=== PATIENT | female | born 1995 | race Caucasian/White ===

== ENCOUNTER → 2020-04-08 11:30 | Outpatient (POV) | payer BC, SELFPAY | PROVIDERS: Visit Provider Audiologist | DX: Z00.00 Encounter for general adult medical examination without abnormal findings (principal) ==

== ENCOUNTER → 2021-02-24 08:39 | Outpatient (POV) | payer BC, SELFPAY | PROVIDERS: Visit Provider Audiologist | DX: Z00.00 Encounter for general adult medical examination without abnormal findings (principal) ==

== ENCOUNTER → 2021-03-26 11:07 | Outpatient (CLI) | payer BC, SELFPAY | PROVIDERS: PCP Family Medicine; Visit Provider Family Medicine | DX: Z20.822 Contact with and (suspected) exposure to COVID-19 (principal) | CPT/HCPCS: U0003 ==

== ENCOUNTER → 2021-06-09 15:18 | Outpatient (CLI) | payer BC, SELFPAY ==
--- NOTE | 2021-06-09 15:22 | US_ITS ---
PROCEDURE: US TRANSVAGINAL CLINICAL INDICATION: POLYCYSTIC OVARY SYNDROME COMPARISON: No exams were available for comparison FINDINGS: UTERUS: 7cm x 5cmx 3cm with a combined endometrial thickness of 2.6mm. No uterine mass evident. LEFT OVARY: [id number] with a volume of 7.1ml. RIGHT OVARY: [id number] with a volume of 9.3ml. No cul-de-sac fluid evident. There are few small follicles in the left ovary. IMPRESSION: Unremarkable pelvic ultrasound Dictated by: Yadiel Fernandes MD 06/09/2021 16:42 Yadiel Fernandes MD in [place] 06/09/2021 16:42
== END ==
PROVIDERS: PCP Family Medicine; Visit Provider Family Medicine
DX: E28.2 Polycystic ovarian syndrome (principal)
CPT/HCPCS: 76830

== ENCOUNTER → 2021-08-18 09:20 | Outpatient (CLI) | payer BC, SELFPAY ==
[2021-08-18 11:22] LABS: Thyroid Stimulating Hormone 7.11 uIU/mL (0.465-4.68)
== END ==
PROVIDERS: Visit Provider Family Medicine
DX: R94.6 Abnormal results of thyroid function studies (principal)
CPT/HCPCS: 36415; 84443

== ENCOUNTER → 2021-12-24 08:42 | Outpatient (CLI) | payer BC, SELFPAY ==
[2021-12-24 09:57] LABS: Blood Urea Nitrogen 12 mg/dl (7-17); Calcium 9.2 mg/dl (8.4-10.2); Carbon Dioxide 23 mmol/L (22.0-30.0); Chloride 105 mmol/L (98-107); Estimated Glomerular Filt Rate 102 ml/min (>60); GFR (African American) 123 ML/MIN (>60); Glucose 102 mg/dl (74-100); Sodium 139 mmol/L (136-145)
== END ==
PROVIDERS: Visit Provider Surgery
DX: Z01.812 Encounter for preprocedural laboratory examination (principal); Z11.52 Encounter for screening for COVID-19; L73.2 Hidradenitis suppurativa
CPT/HCPCS: 36415; 80048; C9803; U0003; U0005

== ENCOUNTER 2021-12-26 10:17 | Day surgery (SDC) | payer BC, SELFPAY ==
[2021-12-23 12:03] VITALS: BMI 39.6
[2021-12-26] VITALS (11 sets, daily range): BP systolic 120–160; BP diastolic 61–96; PULSE 84–107; RESP 12–18; TEMP 36.1–37.1; O2SAT 92–97
[2021-12-26 11:45] LABS: HCG Qualitative, Serum Negative (Negative)
--- NOTE | 2021-12-26 12:19 | P.PN_ITS ---
[facility] Anesthesia Checklist - Patient Identification Patient Identification: Arm Band - Structural Data Admitted From: Home Planned Operative Procedure/s: I&D Left Axillary Hidratinitis Consent for Planned Operative Procedure(s) Verified: Yes Verified Documents: Surgical Consent, History and Physical - NPO Status Verified Time NPO: 00:00 - Additional verifications Anesthesia Reactions: No Hx Blood Transfusions: No Blood Transfusion Reaction: No - Airway Assessment C-Spine Mobility Assessed: Yes (mp2) TMJ Mobility Assessed: Yes Dentition: Good Dentition - Neurological Assessment Level of Consciousness: Awake, Alert - Anesthesia Plan Anesthesia Risk discussed: Yes Anesthesia Plan: Verified ASA Class: III Anesthesia Type: General [facility] History I have reviewed the patient's past medical history: Yes Medical History: Reports:: Hyperlipidemia Denies:: Cancer, Diabetes Mellitus Type 1, Diabetes Mellitus Type 2, MRSA, Seizures *Have you ever received a pneumonia vaccine?: No *Have you received a flu vaccine this season?: No Other Medical History: Denies: Blood Transfusion Reaction Anesthesia experience/problems:: nac Laterality Cases: Bilateral: Myringotomy (Ear Tubes) Other Surgeries: Yes: Colonoscopy Amputation: No - *Social History Last grade of school completed: Advanced degree Smoking Status: Never smoker Alcohol Intake: never Substance Use Type: denies use *Occupational Status:: student Housing: house Household Members: family *Travel in the last 8 weeks: None Family Hx:: No significant family history
--- NOTE | 2021-12-26 14:01 | P.OP_ITS ---
Date of procedure: 12/26/21 Pre-op Diagnosis:: Left axillary hidradenitis suppurativa Post-op Diagnosis:: Same Procedure performed:: Incision and drainage with unroofing and debridement of left axillary hidradenitis suppurativa Surgeon:: Laz Amado MD [employer] ADJUSTER:: Other Anesthesia: LMA Estimated blood loss (mL): 25 Clinical Note:: Patient is a 26-year-old female referred by Dr. Guardado for left axillary abscess and seen in the office several days ago. She states that about 3 months ago she had developed 3 lumps in her left axillary region. It has been somewhat tender. About a week ago she had developed some drainage from a lower area that had become opened. Initially this was draining blood and then it became more purulent looking. She has been on clindamycin. No prior history of axillary hidradenitis. When seen in the office she had what appeared to be left axillary hidradenitis suppurativa. There is some purulent drainage from an open area in the skin which was somewhat ulcerated. It was felt that likely all of these areas of induration with erythema were communicating as classic axillary hidradenitis suppurativa. Plan was made for unroofing and debridement. Operative findings:: Consistent with underlying axillary hidradenitis suppurativa with purulent granulation tissue and tracts. Operative note:: Patient was taken the operating room. She was positioned in supine position. General anesthesia was induced via LMA. Left axilla was prepped and draped in the standard surgical fashion. At the site of the opening in the skin there was noted to be some underlying inflamed suppurative appearing tissue. Probe was inserted. This easily tracked to the other more superior indurated erythematous areas. The overlying skin was incised with electrocautery. There was underlying purulent granulation tissue consistent with hidradenitis suppurativa. This was thoroughly debrided mostly bluntly with abrasive gauze to clean epithelialized tissue. There was noted to be some purulent drainage with palpation more superior to this. There was noted to be a tract extending to this area from the main opening tract. Ultimately this required incision and unroofing with debridement of the underlying purulent granulation tissue as well. There was some minor deep tracking. Wound was irrigated. Local anesthetic was infiltrated. Decent hemostasis was achieved with electrocautery. Wound was packed with dry 4 x 4 and covered with clean dry sterile dressing. Condition: stable Disposition: PACU Complications:: None immediately apparent
--- NOTE | 2021-12-26 14:02 | HMH.ANESI ---
[facility] Anesthesia Record Part I Intake, IV Amount: 500 Estimated blood loss (mL): 20 Urine output (mL): 0 Blood Pressure: 132/87 SaO2: 92 Pulse Rate: 93 Respiratory Rate: 16 Temperature: 97.0 F Patient is:: Drowsy Stable to PACU at:: 13:58
--- NOTE | 2021-12-27 07:52 | P.PN_ITS ---
[facility] Anesthesia Record Part II Discharge Time: 14:38 Destination: Surgical Day Care (OP Surgery) PACU nurse assessment reviewed?: Yes Patient Condition:: Good Anesthesia Complications:: None Swallowing reflex intact?: Yes Cyanosis?: No Blood Pressure: 138/80 Pulse Rate: 96 Temperature: 97.1 F Mental Status: Alert & Oriented Pain level:: 0 Nausea and/or vomitting:: None Intake, IV Amount: 0
[2021-12-27 07:53] VITALS: BP 138/80; PULSE 96; TEMP 36.2
== END 2021-12-26 15:10 | disposition home or self-care (01) ==
LOC: OR 10:26
PROVIDERS: PCP Family Medicine; Visit Provider Surgery
PROC: (CPT 10061; principal; 2021-12-26 12:00)
DX: L73.2 Hidradenitis suppurativa (principal); E78.5 Hyperlipidemia, unspecified; E07.9 Disorder of thyroid, unspecified; Z79.3 Long term (current) use of hormonal contraceptives; Z79.899 Other long term (current) drug therapy
CPT/HCPCS: 10061; 84703; 96374; J2405

== ENCOUNTER 2021-12-27 12:31 | Outpatient (CLI) | payer BC, SELFPAY | END 2021-12-27 12:48 | disposition home or self-care (01) | LOC: INF 12:32 | PROVIDERS: PCP Family Medicine; Visit Provider Surgery | DX: Z48.01 Encounter for change or removal of surgical wound dressing (principal); L73.2 Hidradenitis suppurativa | CPT/HCPCS: G0463 ==

== ENCOUNTER 2021-12-28 15:17 | Outpatient (CLI) | payer BC, SELFPAY | END 2021-12-28 15:35 | disposition home or self-care (01) | LOC: INF 15:17 | PROVIDERS: PCP Family Medicine; Visit Provider Surgery | DX: L02.412 Cutaneous abscess of left axilla (principal); Z48.01 Encounter for change or removal of surgical wound dressing | CPT/HCPCS: G0463 ==

== ENCOUNTER 2021-12-29 15:23 | Outpatient (CLI) | payer BC, SELFPAY | END 2021-12-29 15:40 | disposition home or self-care (01) | LOC: INF 15:24 | PROVIDERS: PCP Family Medicine; Visit Provider Surgery | DX: L73.2 Hidradenitis suppurativa (principal); Z48.01 Encounter for change or removal of surgical wound dressing | CPT/HCPCS: G0463 ==

== ENCOUNTER 2021-12-30 15:17 | Outpatient (CLI) | payer BC, SELFPAY ==
--- NOTE | 2021-12-30 16:30 | PC.NURSE ---
REMOVED DRESSING FROM PT'S LEFT AXILLARY. IRRIGATED WOUND WITH NS, PACKED WITH DRY GAUZE, COVERED WITH ABD PAD, AND TAPED INTO PLACE.
== END 2021-12-30 15:40 | disposition home or self-care (01) ==
LOC: INF 15:18
PROVIDERS: PCP Family Medicine; Visit Provider Surgery
DX: L73.2 Hidradenitis suppurativa (principal); Z48.01 Encounter for change or removal of surgical wound dressing
CPT/HCPCS: G0463

== ENCOUNTER → 2021-12-31 15:28 | Outpatient (CLI) | payer BC, SELFPAY | PROVIDERS: PCP Family Medicine; Visit Provider Surgery | DX: L73.2 Hidradenitis suppurativa (principal); Z48.01 Encounter for change or removal of surgical wound dressing | CPT/HCPCS: G0463 ==

== ENCOUNTER → 2022-01-01 15:34 | Outpatient (CLI) | payer BC, SELFPAY ==
[2022-01-01 15:45] VITALS: BP 114/73; PULSE 91; RESP 18; TEMP 36.4; O2SAT 97
[2022-01-01 16:00] VITALS: BP 114/73; PULSE 91; RESP 18; TEMP 36.4; O2SAT 97
== END ==
PROVIDERS: PCP Family Medicine; Visit Provider Surgery
DX: L73.2 Hidradenitis suppurativa (principal); Z48.01 Encounter for change or removal of surgical wound dressing
CPT/HCPCS: G0463

== ENCOUNTER 2022-01-02 15:24 | Outpatient (CLI) | payer BC, SELFPAY | END 2022-01-02 15:45 | disposition home or self-care (01) | PROVIDERS: PCP Family Medicine; Visit Provider Surgery | DX: L73.2 Hidradenitis suppurativa (principal); Z48.01 Encounter for change or removal of surgical wound dressing | CPT/HCPCS: G0463 ==

== ENCOUNTER 2022-01-03 15:15 | Outpatient (CLI) | payer BC, SELFPAY | END 2022-01-03 15:35 | disposition home or self-care (01) | LOC: INF 15:15 | PROVIDERS: PCP Family Medicine; Visit Provider Surgery | DX: L73.2 Hidradenitis suppurativa (principal); Z48.01 Encounter for change or removal of surgical wound dressing | CPT/HCPCS: G0463 ==

== ENCOUNTER 2022-01-04 15:21 | Outpatient (CLI) | payer BC, SELFPAY | END 2022-01-04 15:35 | disposition home or self-care (01) | LOC: INF 15:21 | PROVIDERS: PCP Family Medicine; Visit Provider Surgery | DX: L73.2 Hidradenitis suppurativa (principal); Z48.01 Encounter for change or removal of surgical wound dressing | CPT/HCPCS: G0463 ==

== ENCOUNTER 2022-01-06 15:22 | Outpatient (CLI) | payer BC, SELFPAY | END 2022-01-06 15:41 | disposition home or self-care (01) | LOC: INF 15:23 | PROVIDERS: PCP Family Medicine; Visit Provider Surgery | DX: L73.2 Hidradenitis suppurativa (principal); Z48.01 Encounter for change or removal of surgical wound dressing | CPT/HCPCS: G0463 ==

== ENCOUNTER 2022-01-07 15:26 | Outpatient (CLI) | payer BC, SELFPAY | END 2022-01-07 15:50 | disposition home or self-care (01) | LOC: INF 15:27 | PROVIDERS: PCP Family Medicine; Visit Provider Surgery | DX: L73.2 Hidradenitis suppurativa (principal); Z48.01 Encounter for change or removal of surgical wound dressing | CPT/HCPCS: G0463 ==

== ENCOUNTER 2022-01-08 15:30 | Outpatient (CLI) | payer BC, SELFPAY ==
--- NOTE | 2022-01-08 16:02 | PC.NURSE ---
Mother stated that the old dressing had come off this morning and she covered it as best as she could. Old dressing had a small amount of green drainage noted on it, wound was draining small/mod amount of serosang drainage. It was cleansed w/ns, packed with gauze, covered w/abd pad and medipore tape. Skin around incision was tender and irritated.
== END 2022-01-08 15:55 | disposition home or self-care (01) ==
LOC: INF 15:31
PROVIDERS: PCP Family Medicine; Visit Provider Surgery
DX: L73.2 Hidradenitis suppurativa (principal); Z48.01 Encounter for change or removal of surgical wound dressing
CPT/HCPCS: G0463

== ENCOUNTER 2022-01-09 15:21 | Outpatient (CLI) | payer BC, SELFPAY | END 2022-01-09 15:37 | disposition home or self-care (01) | LOC: INF 15:22 | PROVIDERS: PCP Family Medicine; Visit Provider Surgery | DX: L73.2 Hidradenitis suppurativa (principal); Z48.01 Encounter for change or removal of surgical wound dressing | CPT/HCPCS: G0463 ==

== ENCOUNTER 2022-01-10 15:20 | Outpatient (CLI) | payer BC, SELFPAY | END 2022-01-10 15:35 | disposition home or self-care (01) | LOC: INF 15:20 | PROVIDERS: PCP Family Medicine; Visit Provider Surgery | DX: L73.2 Hidradenitis suppurativa (principal); Z48.01 Encounter for change or removal of surgical wound dressing | CPT/HCPCS: G0463 ==

== ENCOUNTER 2022-01-11 15:22 | Outpatient (CLI) | payer BC, SELFPAY | END 2022-01-11 15:42 | disposition home or self-care (01) | LOC: INF 15:23 | PROVIDERS: PCP Family Medicine; Visit Provider Surgery | DX: L73.2 Hidradenitis suppurativa (principal); Z48.01 Encounter for change or removal of surgical wound dressing | CPT/HCPCS: G0463 ==

== ENCOUNTER 2022-01-12 15:13 | Outpatient (CLI) | payer BC, SELFPAY | END 2022-01-12 15:28 | disposition home or self-care (01) | LOC: INF 15:14 | PROVIDERS: PCP Family Medicine; Visit Provider Surgery | DX: L73.2 Hidradenitis suppurativa (principal); Z48.01 Encounter for change or removal of surgical wound dressing | CPT/HCPCS: G0463 ==

== ENCOUNTER 2022-01-13 15:18 | Outpatient (CLI) | payer BC, SELFPAY | END 2022-01-13 15:30 | disposition home or self-care (01) | LOC: INF 15:19 | PROVIDERS: PCP Family Medicine; Visit Provider Surgery | DX: L73.2 Hidradenitis suppurativa (principal); Z48.01 Encounter for change or removal of surgical wound dressing | CPT/HCPCS: G0463 ==

== ENCOUNTER → 2022-01-14 15:28 | Outpatient (CLI) | payer BC, SELFPAY | PROVIDERS: PCP Family Medicine; Visit Provider Surgery | DX: L73.2 Hidradenitis suppurativa (principal); Z48.01 Encounter for change or removal of surgical wound dressing | CPT/HCPCS: G0463 ==

== ENCOUNTER → 2022-01-15 15:29 | Outpatient (CLI) | payer BC, SELFPAY | PROVIDERS: PCP Family Medicine; Visit Provider Surgery | DX: L73.2 Hidradenitis suppurativa (principal); Z48.01 Encounter for change or removal of surgical wound dressing | CPT/HCPCS: G0463 ==

== ENCOUNTER 2022-01-16 15:27 | Outpatient (CLI) | payer BC, SELFPAY ==
--- NOTE | 2022-01-16 16:09 | PC.NURSE ---
Addendum entered by Lindsay Salter RN 01/16/22 16:11: BLEEDING NOTED FROM SITE. Original Note: REMOVED OLD DRESSING. LEFT AXILLA SURGICAL SITE IRRIGATED AND CLEANED WITH NS. AREA DRIED WITH STERILE 4X4. PACKED SURGICAL INCISION WITH DRY STERILE KERLIX. REINFORCED WITH STERILE 4X4'S AND TAPED. PATIENT TOLERATED DRESSING CHANGE WELL.
== END 2022-01-16 16:12 | disposition home or self-care (01) ==
LOC: INF 15:28
PROVIDERS: PCP Family Medicine; Visit Provider Surgery
DX: L73.2 Hidradenitis suppurativa (principal); Z48.01 Encounter for change or removal of surgical wound dressing
CPT/HCPCS: G0463

== ENCOUNTER 2022-01-17 15:16 | Outpatient (CLI) | payer BC, SELFPAY | END 2022-01-17 15:30 | disposition home or self-care (01) | LOC: INF 15:16 | PROVIDERS: PCP Family Medicine; Visit Provider Surgery | DX: L73.2 Hidradenitis suppurativa (principal); Z48.01 Encounter for change or removal of surgical wound dressing | CPT/HCPCS: G0463 ==

== ENCOUNTER 2022-01-18 15:23 | Outpatient (CLI) | payer BC, SELFPAY | END 2022-01-18 15:34 | disposition home or self-care (01) | LOC: INF 15:23 | PROVIDERS: PCP Family Medicine; Visit Provider Surgery | DX: L73.2 Hidradenitis suppurativa (principal); Z48.01 Encounter for change or removal of surgical wound dressing | CPT/HCPCS: G0463 ==

== ENCOUNTER 2022-01-20 15:20 | Outpatient (CLI) | payer BC, SELFPAY | END 2022-01-20 15:25 | disposition home or self-care (01) | PROVIDERS: PCP Family Medicine; Visit Provider Surgery | DX: L73.2 Hidradenitis suppurativa (principal); Z48.01 Encounter for change or removal of surgical wound dressing | CPT/HCPCS: G0463 ==

== ENCOUNTER 2022-01-21 16:10 | Outpatient (CLI) | payer BC, SELFPAY | END 2022-01-21 16:16 | disposition home or self-care (01) | LOC: INF 16:11 | PROVIDERS: Visit Provider Surgery | DX: L73.2 Hidradenitis suppurativa (principal); Z48.01 Encounter for change or removal of surgical wound dressing | CPT/HCPCS: G0463 ==

== ENCOUNTER 2022-01-22 15:18 | Outpatient (CLI) | payer BC, SELFPAY | END 2022-01-22 15:40 | disposition home or self-care (01) | LOC: INF 15:19 | PROVIDERS: PCP Family Medicine; Visit Provider Surgery | DX: L73.2 Hidradenitis suppurativa (principal); Z48.01 Encounter for change or removal of surgical wound dressing | CPT/HCPCS: G0463 ==

== ENCOUNTER 2022-01-23 15:02 | Outpatient (CLI) | payer BC, SELFPAY | END 2022-01-23 15:20 | disposition home or self-care (01) | LOC: INF 15:03 | PROVIDERS: PCP Family Medicine; Visit Provider Surgery | DX: L73.2 Hidradenitis suppurativa (principal); Z48.01 Encounter for change or removal of surgical wound dressing | CPT/HCPCS: G0463 ==

== ENCOUNTER 2022-01-24 15:11 | Outpatient (CLI) | payer BC, SELFPAY | END 2022-01-24 15:17 | disposition home or self-care (01) | LOC: INF 15:11 | PROVIDERS: PCP Family Medicine; Visit Provider Family Medicine | DX: L73.2 Hidradenitis suppurativa (principal); Z48.02 Encounter for removal of sutures | CPT/HCPCS: G0463 ==

== ENCOUNTER 2022-01-25 15:19 | Outpatient (CLI) | payer BC, SELFPAY | END 2022-01-25 15:28 | disposition home or self-care (01) | LOC: INF 15:19 | PROVIDERS: PCP Family Medicine; Visit Provider Surgery | DX: L73.2 Hidradenitis suppurativa (principal); Z48.01 Encounter for change or removal of surgical wound dressing | CPT/HCPCS: G0463 ==

== ENCOUNTER 2022-01-26 15:03 | Outpatient (CLI) | payer BC, SELFPAY | END 2022-01-26 15:22 | disposition home or self-care (01) | LOC: INF 15:04 | PROVIDERS: PCP Family Medicine; Visit Provider Surgery | DX: L73.2 Hidradenitis suppurativa (principal); Z48.01 Encounter for change or removal of surgical wound dressing | CPT/HCPCS: G0463 ==

== ENCOUNTER 2022-01-27 15:31 | Outpatient (CLI) | payer BC, SELFPAY | END 2022-01-27 15:40 | disposition home or self-care (01) | LOC: INF 15:32 | PROVIDERS: PCP Family Medicine; Visit Provider Surgery | DX: L73.2 Hidradenitis suppurativa (principal); Z48.01 Encounter for change or removal of surgical wound dressing | CPT/HCPCS: G0463 ==

== ENCOUNTER 2022-01-28 15:12 | Outpatient (CLI) | payer BC, SELFPAY ==
[2022-01-28 15:15] VITALS: BP 127/83; PULSE 104; RESP 18; TEMP 36.6; O2SAT 100; BMI 39.9
--- NOTE | 2022-01-28 15:30 | PC.NURSE ---
REMOVED OLD DRESSING. LT AXILLA SURGICAL SITE IRRIGATED WITH NS, INCISION DRIED WITH STERILE KERLIX. INCISION PACKED WITH STERILE KERLIX AND REINFORCED WITH STERILE 4X4 WITH TEGADERM. BLEEDING NOTED FROM SITE. PT TOLERATED DRESSING CHANGE WELL.
[2022-01-28 15:45] VITALS: BP 127/83; PULSE 104; RESP 18; TEMP 36.6; O2SAT 100
== END 2022-01-28 15:45 | disposition home or self-care (01) ==
PROVIDERS: PCP Family Medicine; Visit Provider Surgery
DX: L73.2 Hidradenitis suppurativa (principal); Z48.01 Encounter for change or removal of surgical wound dressing
CPT/HCPCS: G0463

== ENCOUNTER → 2022-01-29 15:10 | Outpatient (CLI) | payer BC, SELFPAY | PROVIDERS: PCP Family Medicine; Visit Provider Surgery | DX: L73.2 Hidradenitis suppurativa (principal); Z48.01 Encounter for change or removal of surgical wound dressing ==

== ENCOUNTER 2022-01-30 15:12 | Outpatient (CLI) | payer BC, SELFPAY | END 2022-01-30 15:25 | disposition home or self-care (01) | LOC: INF 15:12 | PROVIDERS: PCP Family Medicine; Visit Provider Surgery | DX: L73.2 Hidradenitis suppurativa (principal); Z48.01 Encounter for change or removal of surgical wound dressing | CPT/HCPCS: G0463 ==

== ENCOUNTER 2022-02-01 15:27 | Outpatient (CLI) | payer BC, SELFPAY | END 2022-02-01 15:43 | disposition home or self-care (01) | PROVIDERS: PCP Family Medicine; Visit Provider Surgery | DX: L73.2 Hidradenitis suppurativa (principal); Z48.01 Encounter for change or removal of surgical wound dressing | CPT/HCPCS: G0463 ==

== ENCOUNTER 2022-02-02 14:29 | Outpatient (CLI) | payer BC, SELFPAY | END 2022-02-02 14:45 | disposition home or self-care (01) | LOC: INF 14:30 | PROVIDERS: PCP Family Medicine; Visit Provider Surgery | DX: L73.2 Hidradenitis suppurativa (principal); Z48.01 Encounter for change or removal of surgical wound dressing | CPT/HCPCS: G0463 ==

== ENCOUNTER → 2022-02-03 11:29 | Outpatient (CLI) | payer BC, SELFPAY ==
[2022-02-03 12:01] LABS: Basophils % 0.4 % (0.1-2.0); Eosinophils # 0.2 K/mm3 (0.0-0.4); Eosinophils % 2.4 % (0.1-12.0); Hematocrit 37.3 % (37.0-47.0); Hemoglobin 12.7 g/dL (12.2-16.2); Lymphocytes # 1.2 K/mm3 (0.7-4.5); Lymphocytes % 17.8 % (10-50); Mean Corpuscular HGB Conc 34.2 g/dL (31.8-35.4); Mean Corpuscular Hemoglobin 29.1 pg (27.0-31.2); Mean Corpuscular Volume 85.1 fl (81-99); Mean Platelet Volume 9.7 fl (7.4-10.4); Monocytes # 0.2 K/mm3 (0.1-1.0); Neutrophils # 5.2 K/mm3 (1.8-7.8); Neutrophils % 76.4 % (37.0-80.0); Platelet Count 179 K/mm3 (142-424); Red Blood Count 4.38 M/mm3 (4.20-5.40); Red Cell Distribution Width 15.9 % (11.5-17.5); White Blood Count 6.8 K/mm3 (4.8-10.8)
[2022-02-03 12:25] LABS: Chloride 104 mmol/L (98-107); Potassium 4.2 mmoL/L (3.5-5.1); Sodium 137 mmol/L (136-145)
[2022-02-03 12:28] LABS: Alanine Aminotransferase 42 U/L (12-78); Albumin Level 4.4 g/dl (3.5-5.0); Albumin/Globulin Ratio 1.8 (1.1-1.8); Alkaline Phosphatase 96 U/L (38-126); Anion Gap 12.2 mEq/L (5-15); Aspartate Amino Transferase 34 U/L (14-36); Bilirubin,Total 0.7 mg/dl (0.2-1.3); Blood Urea Nitrogen 12 mg/dl (7-17); Calcium 9.4 mg/dl (8.4-10.2); Carbon Dioxide 25 mmol/L (22.0-30.0); Estimated Glomerular Filt Rate 102 ml/min (>60); GFR (African American) 123 ML/MIN (>60); Globulin 2.5 g/dL (1.3-3.2); Glucose 97 mg/dl (74-100); Total Protein,Serum 6.9 g/dl (6.3-8.2)
== END ==
PROVIDERS: PCP Family Medicine; Visit Provider Surgery
DX: L73.2 Hidradenitis suppurativa (principal); Z01.812 Encounter for preprocedural laboratory examination; Z20.822 Contact with and (suspected) exposure to COVID-19
CPT/HCPCS: 36415; 80053; 85025; C9803; U0003; U0005

== ENCOUNTER → 2022-02-04 14:28 | Outpatient (CLI) | payer BC, SELFPAY | PROVIDERS: PCP Family Medicine; Visit Provider Surgery | DX: L73.2 Hidradenitis suppurativa (principal); Z48.01 Encounter for change or removal of surgical wound dressing | CPT/HCPCS: G0463 ==

== ENCOUNTER 2022-02-05 14:26 | Outpatient (CLI) | payer BC, SELFPAY | END 2022-02-05 14:45 | disposition home or self-care (01) | LOC: INF 14:27 | PROVIDERS: PCP Family Medicine; Visit Provider Surgery | DX: L73.2 Hidradenitis suppurativa (principal); Z48.01 Encounter for change or removal of surgical wound dressing | CPT/HCPCS: G0463 ==

== ENCOUNTER 2022-02-06 09:18 | Day surgery (SDC) | payer BC, SELFPAY ==
[2022-02-01 11:48] VITALS: BMI 39.4
[2022-02-06] VITALS (11 sets, daily range): BP systolic 114–139; BP diastolic 68–90; PULSE 78–97; RESP 13–18; TEMP 36.1–37.2; O2SAT 92–97
[2022-02-06 09:42] LABS: Urine Pregnancy, HCG Qual. Negative (Negative)
[2022-02-06 09:49] LABS: Appearance,Urine CLOUDY (Clear); Bilirubin,Urine Negative (Negative); Blood, Urine 3+ (Negative); Color,Urine YELLOW (Yellow); Glucose,Urine (UA) Negative (Negative); Ketones,Urine Negative (Negative); Leukocyte Esterase,Urine 1+ (Negative); Microscopic, Urine URINE MICROSCOPIC (MICROSCOPIC); Nitrate,Urine Negative (Negative); Protein,Urine TRACE (Negative); Specific Gravity, Urine 1.025 (1.005-1.030); Urobilinogen,Urine 0.2 EU/dl (0.2)
[2022-02-06 10:41] LABS: Bacteria,Urine Trace /lpf
--- NOTE | 2022-02-06 13:19 | P.PN_ITS ---
[facility] Anesthesia Checklist - Patient Identification Patient Identification: Arm Band - Structural Data Admitted From: Home Planned Operative Procedure/s: I&D right axilla lesion Consent for Planned Operative Procedure(s) Verified: Yes Verified Documents: Surgical Consent - NPO Status Verified Time NPO: 00:00 - Additional verifications Anesthesia Reactions: No Hx Blood Transfusions: No Blood Transfusion Reaction: No - Airway Assessment C-Spine Mobility Assessed: Yes TMJ Mobility Assessed: Yes Dentition: Good Dentition - Neurological Assessment Level of Consciousness: Awake, Alert, Appropriate - Anesthesia Plan Anesthesia Risk discussed: Yes ASA Class: II Anesthesia Type: MAC [facility] History I have reviewed the patient's past medical history: Yes Medical History: Reports:: Hyperlipidemia Denies:: Cancer, Diabetes Mellitus Type 1, Diabetes Mellitus Type 2, Internal Pacemaker, MRSA, Seizures *Have you ever received a pneumonia vaccine?: No *Have you received a flu vaccine this season?: No Other Medical History: Reports: Hypothyroidism. Denies: Blood Transfusion Reaction Anesthesia experience/problems:: none Laterality Cases: Bilateral: Myringotomy (Ear Tubes) Other Surgeries: Yes: Colonoscopy. No: Pacemaker Amputation: No - *Social History Last grade of school completed: Advanced degree Smoking Status: Never smoker Alcohol Intake: never Substance Use Type: denies use *Occupational Status:: unemployed Housing: house Household Members: family *Travel in the last 8 weeks: None Family Hx:: No significant family history
--- NOTE | 2022-02-06 14:21 | HMH.OPNOTE ---
Date of procedure: 02/06/22 Pre-op Diagnosis:: Left axillary hidradenitis Post-op Diagnosis:: Same Procedure performed:: Incision and drainage left axillary hidradenitis suppurativa with debridement of skin Surgeon:: Laz Amado MD [employer]:: Other Anesthesia: LMA Estimated blood loss (mL): 5 Clinical Note:: Patient is a 26-year-old female who underwent incision and drainage and debridement with unroofing of left axillary hidradenitis on 12/26/2021.? She has been undergoing dry dressings through outpatient.? She was seen in the office last week and stated that several days prior she noticed some tenderness anterior to the wounds. Nursing expressed some concerns for possible infection. She had an area of fluctuance with erythema anterior to the previously noted wounds. I started her on clindamycin. I felt that this may need incision and drainage. The areas showed some contraction and focalization of the fluctuance with antibiotics but did not resolve. Plan was made for incision and drainage. Operative findings:: Consistent with abscess hidradenitis suppurativa Operative note:: Patient was taken to the operating room. She was positioned in supine position. Left axilla was prepped and draped in the standard surgical fashion after induction of general anesthesia via LMA. Limited incision was made overlying the area of fluctuance. There is some purulent drainage and debris. Wound was probed with a blunt probe. It was opened where there was abscess cavity. Underlying area was debrided with small curette. There was noted to be some inversion and ingrowth of epidermis from previous incision and drainage site posterior to this. This was debrided due to its high possibility of recurrence and progressive hidradenitis. There was good granulation tissue at this site. Wounds were irrigated. Local anesthetic was infiltrated. Wounds were packed with dry gauze. Clean dry sterile dressing was applied. Condition: stable Disposition: PACU Specimens:: Debrided tissue Cultures sent Complications:: None immediately apparent
--- NOTE | 2022-02-06 14:27 | P.PN_ITS ---
[facility] Anesthesia Record Part I Intake, IV Amount: 700 Estimated blood loss (mL): 2 Urine output (mL): 0 Blood Products used (#): none Blood Pressure: 122/73 SaO2: 92 Pulse Rate: 88 Respiratory Rate: 13 Temperature: 98.9 F Patient is:: Drowsy Stable to PACU at:: 14:24
--- NOTE | 2022-02-06 15:22 | PC.NURSE ---
UA showed blood and Leukocytes. Pt thought she might be starting her period. Updated Rosa at Dr. masterson office while pt was in pre-op. wanted called back while pt in post op to update in discharge antibiotic. Attempted to call Rosa in Dr. terrazas office while in post op to report pt is already on Antibiotic at home. Rosa out of the office and no one came back to the line after being put on hold. Pt reported that she has started her period so that is where the blood has come from.
--- NOTE | 2022-02-06 15:26 | SUR.PHASEI ---
1452 called and provided detailed report to Gege Alberts RN [id number] transported to post op via stretcher. vital signs stable. denies pain. left pt in stable condition with Gege Alberts RN at bedside.
--- NOTE | 2022-02-06 15:35 | HMH.ANESII ---
[facility] Anesthesia Record Part II Discharge Time: 14:54 Destination: Surgical Day Care (OP Surgery) PACU nurse assessment reviewed?: Yes Patient Condition:: Good Anesthesia Complications:: None Swallowing reflex intact?: Yes Cyanosis?: No Blood Pressure: 139/90 Pulse Rate: 85 Temperature: 98.2 F Mental Status: Alert & Oriented Pain level:: 0 Nausea and/or vomitting:: None Intake, IV Amount: 0
== END 2022-02-06 15:26 | disposition home or self-care (01) ==
LOC: OR 09:19
PROVIDERS: PCP Family Medicine; Visit Provider Surgery
PROC: (CPT 11450; principal; 2022-02-06 11:15)
DX: L73.2 Hidradenitis suppurativa (principal); E78.5 Hyperlipidemia, unspecified; Z79.899 Other long term (current) drug therapy
CPT/HCPCS: 11450; 81001; 81025; 87075; 87086; 87205; 96374; J2405

== ENCOUNTER 2022-02-07 14:32 | Outpatient (CLI) | payer BC, SELFPAY | END 2022-02-07 14:50 | disposition home or self-care (01) | LOC: INF 14:32 | PROVIDERS: PCP Family Medicine; Visit Provider Surgery | DX: L73.2 Hidradenitis suppurativa (principal); Z48.01 Encounter for change or removal of surgical wound dressing | CPT/HCPCS: G0463 ==

== ENCOUNTER 2022-02-08 14:34 | Outpatient (CLI) | payer BC, SELFPAY | END 2022-02-08 14:45 | disposition home or self-care (01) | LOC: INF 14:35 | PROVIDERS: PCP Family Medicine; Visit Provider Surgery | DX: L73.2 Hidradenitis suppurativa (principal); Z48.01 Encounter for change or removal of surgical wound dressing | CPT/HCPCS: G0463 ==

== ENCOUNTER 2022-02-09 12:56 | Outpatient (CLI) | payer BC, SELFPAY | END 2022-02-09 13:37 | disposition home or self-care (01) | LOC: INF 12:57 | PROVIDERS: PCP Family Medicine; Visit Provider Surgery | DX: L73.2 Hidradenitis suppurativa (principal); Z48.01 Encounter for change or removal of surgical wound dressing | CPT/HCPCS: G0463 ==

== ENCOUNTER 2022-02-10 14:30 | Outpatient (CLI) | payer BC, SELFPAY | END 2022-02-10 14:45 | disposition home or self-care (01) | LOC: INF 14:31 | PROVIDERS: PCP Family Medicine; Visit Provider Surgery | DX: L73.2 Hidradenitis suppurativa (principal); Z48.01 Encounter for change or removal of surgical wound dressing | CPT/HCPCS: G0463 ==

== ENCOUNTER 2022-02-11 14:33 | Outpatient (CLI) | payer BC, SELFPAY ==
--- NOTE | 2022-02-11 15:03 | PC.NURSE ---
REMOVED OLD DRESSING. LEFT AXILLA SURGICAL SITES IRRIGATED AND CLEANED WITH NS. BLEEDING NOTED TO SITES. AREA DRIED WITH STERILE 4X4. SURGICAL INCISIONS X2 PACKED WITH DRY STERILE KERLIX. SITE REINFORCED WITH STERILE 4X4'S AND TEGADERM. PATIENT TOLERATED DRESSING CHANGE WELL.
[2022-02-11 15:08] VITALS: BP 130/72; PULSE 88; RESP 18; TEMP 36.9; O2SAT 97
[2022-02-11 15:09] VITALS: BP 130/72; PULSE 88; RESP 18; TEMP 36.9; O2SAT 97
[2022-02-11 15:11] VITALS: BP 130/72; PULSE 88; RESP 18; TEMP 36.9; O2SAT 97
== END 2022-02-11 15:12 | disposition home or self-care (01) ==
LOC: INF 14:34
PROVIDERS: PCP Family Medicine; Visit Provider Surgery
DX: L73.2 Hidradenitis suppurativa (principal); Z48.01 Encounter for change or removal of surgical wound dressing
CPT/HCPCS: G0463

== ENCOUNTER 2022-02-12 15:00 | Outpatient (CLI) | payer BC, SELFPAY ==
[2022-02-12 15:05] VITALS: BP 146/78; PULSE 98; RESP 18; TEMP 36.3; O2SAT 98
[2022-02-12 16:49] VITALS: BP 146/78; PULSE 98; RESP 18; TEMP 36.3; O2SAT 97
== END 2022-02-12 15:45 | disposition home or self-care (01) ==
LOC: INF 15:01
PROVIDERS: PCP Family Medicine; Visit Provider Surgery
DX: L73.2 Hidradenitis suppurativa (principal); Z48.01 Encounter for change or removal of surgical wound dressing
CPT/HCPCS: G0463

== ENCOUNTER 2022-02-13 14:16 | Outpatient (CLI) | payer BC, SELFPAY | END 2022-02-13 14:35 | disposition home or self-care (01) | LOC: INF 14:17 | PROVIDERS: PCP Family Medicine; Visit Provider Surgery | DX: L73.2 Hidradenitis suppurativa (principal); Z48.01 Encounter for change or removal of surgical wound dressing | CPT/HCPCS: G0463 ==

== ENCOUNTER 2022-02-15 15:29 | Outpatient (CLI) | payer BC, SELFPAY | END 2022-02-15 15:40 | disposition home or self-care (01) | LOC: INF 15:29 | PROVIDERS: PCP Family Medicine; Visit Provider Surgery | DX: L73.2 Hidradenitis suppurativa (principal); Z48.01 Encounter for change or removal of surgical wound dressing | CPT/HCPCS: G0463 ==

== ENCOUNTER 2022-02-16 14:30 | Outpatient (CLI) | payer BC, SELFPAY | END 2022-02-16 14:45 | disposition home or self-care (01) | LOC: INF 14:31 | PROVIDERS: PCP Family Medicine; Visit Provider Surgery | DX: L73.2 Hidradenitis suppurativa (principal); Z48.01 Encounter for change or removal of surgical wound dressing | CPT/HCPCS: G0463 ==

== ENCOUNTER → 2023-02-09 14:08 | Outpatient (CLI) | payer OTHER, SELFPAY ==
--- NOTE | 2023-02-09 14:12 | US_ITS ---
PROCEDURE INFORMATION: Exam: US Right Breast, Complete Exam date and time: 02/09/2023 2:24 PM Age: 28 years old Clinical indication: Bilateral breast pain. large axillary abcesses removed TECHNIQUE: Imaging protocol: Complete ultrasound of all four quadrants of the right breast and the retroareolar regions, including ultrasound of the axilla when performed. COMPARISON: No relevant prior studies available. FINDINGS: Breast: Ultrasound assessment of 4 quadrants and retroareolar right breast as well as right axilla was performed. Only normal fibroglandular tissues are present throughout the right breast and retroareolar breast. No suspicious solid or cystic mass is present. No benign-appearing solid or cystic mass is present. No architectural distortion or shadowing is present. No axillary adenopathy is present. In the right axilla, the a complicated subcutaneous suspected multiloculated collection measures about 3.4 x 0.9 x 3.0 cm. This could reflect a subcutaneous abscess or postoperative seroma given the patient's clinical history IMPRESSION: In the right axilla, the a complicated subcutaneous suspected multiloculated collection measures about 3.4 x 0.9 x 3.0 cm. This could reflect a subcutaneous abscess or postoperative seroma given the patient's clinical history No sonographic evidence of malignancy. ASSESSMENT: BI-RADS category 2: Benign
--- NOTE | 2023-02-09 14:12 | US_ITS ---
PROCEDURE INFORMATION: Exam: US Left Breast, Complete Exam date and time: 02/09/2023 2:49 PM Age: 28 years old Clinical indication: Has had large axillary MRSA abcesses removed; Abnormal breast exam abnormal breast tissue TECHNIQUE: Imaging protocol: Complete ultrasound of all four quadrants of the left breast and the retroareolar regions, including ultrasound of the axilla when performed. COMPARISON: No relevant prior studies available. FINDINGS: Breast: Ultrasound assessment of 4 quadrants and retroareolar left breast as well as left axilla Focal skin thickening with hypodense cystic collection along the 6 o'clock axis 9 cm from the nipple measures 2.4 x 3.8 x 0.3 cm. This has features highly suggestive of large sebaceous cyst, possibly inflamed In the left axilla, there is a hypoechoic irregular skin thickening measuring up to about 5 mm in depth. This could reflect a superficial infection or postoperative seroma given the patient's clinical history No suspicious solid or cystic mass is present. No benign-appearing solid or cystic mass is present. No architectural distortion or shadowing is present. No axillary adenopathy is present. IMPRESSION: Focal skin thickening with hypodense cystic collection along the 6 o'clock axis 9 cm from the nipple measures 2.4 x 3.8 x 0.3 cm. This has features highly suggestive of large sebaceous cyst, possibly inflamed In the left axilla, there is a hypoechoic irregular skin thickening measuring up to about 5 mm in depth. This could reflect a superficial infection or postoperative seroma given the patient's clinical history ASSESSMENT: BI-RADS category 2: Benign
== END ==
PROVIDERS: PCP Physician Assistant; Visit Provider Physician Assistant
DX: N64.59 Other signs and symptoms in breast (principal)
CPT/HCPCS: 76641

== ENCOUNTER 2024-02-20 08:51 | Outpatient (CLI) | payer OTHER, SELFPAY ==
[2024-02-20 09:53] LABS: Eosinophils # 0.1 K/mm3 (0.0-0.4); Eosinophils % 1.9 % (0.1-12.0); Hematocrit 34.9 % (37.0-47.0); Hemoglobin 11.3 g/dL (12.2-16.2); Lymphocytes # 0.7 K/mm3 (0.7-4.5); Lymphocytes % 13.7 % (10-50); Mean Corpuscular HGB Conc 32.3 g/dL (31.8-35.4); Mean Corpuscular Hemoglobin 25.2 pg (27.0-31.2); Mean Corpuscular Volume 78.2 fl (81-99); Mean Platelet Volume 9.2 fl (7.4-10.4); Monocytes # 0.2 K/mm3 (0.1-1.0); Monocytes % 3.1 % (1.7-9.3); Neutrophils # 4.4 K/mm3 (1.8-7.8); Neutrophils % 81.3 % (37.0-80.0); Platelet Count 212 K/mm3 (142-424); Red Blood Count 4.46 M/mm3 (4.20-5.40); Red Cell Distribution Width 17.5 % (11.5-17.5); White Blood Count 5.4 K/mm3 (4.8-10.8)
[2024-02-20 10:33] LABS: Alanine Aminotransferase 25 U/L (12-78); Albumin Level 3.7 g/dl (3.5-5.0); Albumin/Globulin Ratio 1.3 (1.1-1.8); Alkaline Phosphatase 153 U/L (38-126); Anion Gap 13.3 mEq/L (5-15); Aspartate Amino Transferase 26 U/L (14-36); Bilirubin,Total 0.3 mg/dl (0.2-1.3); Blood Urea Nitrogen 15 mg/dl (7-17); Calcium 9.4 mg/dl (8.4-10.2); Carbon Dioxide 29 mmol/L (22.0-30.0); Chloride 103 mmol/L (98-107); Estimated Glomerular Filt Rate 85 ml/min (>60); GFR (African American) 103 ML/MIN (>60); Globulin 2.8 g/dL (1.3-3.2); Glucose 85 mg/dl (74-100); Potassium 4.3 mmoL/L (3.5-5.1); Sodium 141 mmol/L (136-145); Total Protein,Serum 6.5 g/dl (6.3-8.2)
[2024-02-20 11:30] LABS: HIV (1&2) Antibody Rapid NON REACTIVE
[2024-02-22 18:10] LABS: Hepatitis Be Antibody Negative (Negative)
[2024-02-23 04:20] LABS: QuantiFERON-TB Gold Plus Negative (Negative)
[2024-04-07 10:56] LABS: Hep B Core Ab, Total Negative; Hepatitis B Core Antibody, IgM Negative
[2024-04-07 10:57] LABS: Hepatitis B Surf Ab Quant <3.1; Hepatitis C Antibody Non Reactive
== END 2024-02-20 23:59 | disposition home or self-care (01) ==
LOC: LAB 08:53
PROVIDERS: PCP Family Medicine; Visit Provider Physician Assistant
DX: L73.2 Hidradenitis suppurativa (principal); L20.89 Other atopic dermatitis; Z79.899 Other long term (current) drug therapy
CPT/HCPCS: 36415; 80053; 85025; 86480; 86704; 86706; 86707; 87380

== ENCOUNTER 2024-09-07 13:00 | Emergency (ER) | payer OTHER, SELFPAY ==
--- NOTE | 2024-09-07 13:03 | XR_ITS ---
PROCEDURE INFORMATION: Exam: XR Left Knee Exam date and time: 09/07/2024 1:02 PM Age: 29 years old Clinical indication: Injury or trauma; Fall; Blunt trauma; Knee; Left TECHNIQUE: Imaging protocol: Radiologic exam of the left knee. Views: 3 views. COMPARISON: No relevant prior studies available. FINDINGS: Bones/joints: Small suprapatellar joint effusion. No acute fracture or dislocation. Soft tissues: Normal. IMPRESSION: Small suprapatellar joint effusion.
[2024-09-07 13:20] VITALS: BP 124/85; PULSE 88; RESP 18; TEMP 36.6; O2SAT 98; BMI 32.4
--- NOTE | 2024-09-07 13:29 | ED_ITS ---
Discharge Plan Disposition Patient Disposition: Home, Self-Care Condition: Good Prescriptions Prescriptions: New ibuprofen 800 mg tablet 800 mg PO Q8H PRN (Reason: pain) Qty: 30 0RF No Action levothyroxine 112 mcg tablet 112 mcg PO DAILY rosuvastatin 10 mg tablet 10 mg PO DAILY norethindrone-ethin estradiol 1 EACH tablet 1 each PO DAILY Referrals Follow up/Referrals: Ramon Laboy MD [Primary Care Provider] - See instructions Activity Restrictions/Add. Instructions Additional Instructions/Restrictions: Take medication as prescribed. Rest, ice, compression, elevation. If symptoms persist or worsen, follow up with primary care provider. Clinical Impressions Clinical Impression: Left knee pain Qualifiers: Chronicity: acute Qualified Code(s): M25.562 - Pain in left knee Instructions Patient Instructions: How To Perform RICE (Rest, Ice, Compress, Elevate), DI for Knee Effusion, DI for Knee Pain Print Language Print Language: Yi Discharge ED Provider: Maci Gonzales [facility] [place] General Stated complaint: AO fall 09/07 @1130, left knee pain Mode of Arrival: Ambulatory Source of Information: Patient Limitations: No Limitations Time Seen by Provider: 09/07/24 13:18 Description of Symptoms (Recalled from Triage Doc. by RN): PATIENT C/O INJURY TO LEFT KNEE AND UPPER LEG AFTER FALLING TODAY HEENT Symptoms (Recalled from RN notes): No Resp Symptoms (Recalled from RN notes): No Skin Symptoms (Recalled from RN notes): No MS Symptoms (Recalled from RN notes): Yes Functional Status (Recalled from RN notes): WNL History of Present Illness Provider Complaint: Pt reports that she was going downhill outside and slipped on the ice, essentially doing the splits in the process. Pt reports that she has a lot of pain in her left upper thigh and knee. She reports that she took 2 Aleve at 12:30 and her current pain is 8/10. Related Data Home Medications ?Medication ?Instructions ?Recorded ?Confirmed rosuvastatin 10 mg tablet 10 mg PO DAILY hld 12/22/21 09/07/24 norethindrone 0.5 mg-ethinyl 1 each PO DAILY control 12/23/21 09/07/24 estradiol 35 mcg tablet levothyroxine 112 mcg tablet 112 mcg PO DAILY 03/16/23 09/07/24 Previous Rx's ?Medication ?Instructions ?Recorded ibuprofen 800 mg tablet 800 mg PO Q8H PRN pain #30 tabs 09/07/24 Allergies Allergy/AdvReac Type Severity Reaction Status Date / Time Sulfa (Sulfonamide Allergy Mild Verified 03/16/23 08:28 Antibiotics) Worker's Comp Is this a Worker's Comp case?: No [facility] Disclaimer: The information contained in this section may have been updated after the patient was seen, as this information can be updated by other users. Medical History Abnormal menses Abnormal uterine bleeding Autism spectrum disorder Axillary abscess Hyperlipidemia Hypothyroid PCOS (polycystic ovarian syndrome) Sebaceous cyst of axilla History of recurrent sebaceous cyst in axilla, under breasts and in groin Surgical History History of incision and drainage Family History Grandfather Cancer Other Coronary artery disease Hyperlipidemia Social History Smoking Status: Never smoker alcohol intake: never substance use type: denies use current occupational status: unemployed Travel in the last 8 weeks: None household members: family housing: house current occupational exposures/hazards: No caffeine: Yes Have you lived/traveled outside [place] in past 30 days?: No Contact w/someone who lives/traveled outside [place] past 30 days?: No Exposure to someone with infectious disease in past 14 days?: No Do you have a fever (greater than 100.4 F or 38 C)?: No Have you tested positive for COVID-19: No Exposed to someone with COVID-19 in past 14 days?: No Do you have a sore throat?: No Do you have a cough?: No Do you have any weakness?: No Do you have any diarrhea?: No Are you experiencing any unusual bleeding?: No Do you have any muscle aches/pain?: No Do you have any abdominal pain?: No Are you experiencing loss of taste or smell?: No ROS Obtained: Yes All systems reviewed & no additional complaints except as documented Constitutional Constitutional: Reports system reviewed and no additional complaints, except as documented Eyes Eyes: Reports system reviewed and no additional complaints, except as documented ENT Ears, Nose, Mouth, and Throat: Reports system reviewed and no additional complaints, except as documented Cardiovascular Cardiovascular: Reports system reviewed and no additional complaints, except as documented Respiratory Respiratory: Reports system reviewed and no additional complaints, except as documented Gastrointestinal Gastrointestingal: Reports system reviewed and no additional complaints, except as documented Genitourinary Female Genitourinary: Reports system reviewed and no additional complaints, except as documented Musculoskeletal Musculoskeletal: Reports system reviewed and no additional complaints, except as documented, Reports abnormal gait, Reports joint swelling and Reports myalgias Integumentary/Breasts Skin/Breast: Reports system reviewed and no additional complaints, except as documented Neurologic Neurologic: Reports system reviewed and no additional complaints, except as documented and Reports abnormal gait Endocrine Endocrine: Reports system reviewed and no additional complaints, except as documented Hematologic/Lymphatic Henatologic/Lymphatic: Reports system reviewed and no additional complaints, except as documented Allergic/Immunologic Allergic/Immunologic: Reports system reviewed and no additional complaints, except as documented Physical Exam General General appearance: alert and in no apparent distress Head Head exam: atraumatic and normocephalic Eye Eye exam: Present normal appearance ENT ENT exam: Present normal exam and normal oropharynx Neck Neck exam: Present normal inspection Chest Chest inspection: Present normal inspection and symmetric chest wall rise Respiratory Respiratory exam: Present normal lung sounds bilaterally Cardiovascular Cardiovascular exam: Present regular rate, normal rhythm and normal heart sounds Abdominal Exam Abdominal exam: Present soft Expanded Lower Extremity Exam Left: Hip/Pelvis exam: Present normal inspection Upper leg exam: Present tenderness Leg image: 2 1. tenderness 2. swelling Knee exam: Present tenderness and swelling Lower leg exam: Present normal inspection Ankle exam: Present normal inspection Foot/toe exam: Present normal inspection Neurovascular/Tendon exam: Present normal capillary refill Comment: Pt in wheelchair. Pt states that her knee and upper thing hurt with weight bearing. Back Exam Back exam: Present normal inspection Neurological Exam Neurological exam: Present alert and oriented X3 Psychiatric Psychiatric exam: Present normal affect and normal mood Skin Skin exam: Present warm, dry and intact Lymphatic Lymphatic Findings: no adenopathy Medical Decision Making Medical Records Screening: Per USPSTF and CDC recommendations, given the prevalence of disease in our region, it is our hospital?s policy to screen for HIV and viral Hepatitis for all patients aged 18 and over and those with ongoing risk factors. Parag Inquiry Pt receiving controlled substance: No Parag was queried for this patient: No Vital Signs: 09/07/24 13:20 Temperature 97.8 F Temperature Source Oral Pulse Rate [Left Brachial] 88 Respiratory Rate 18 Blood Pressure [Left Arm] 124/85 Blood Pressure Mean [Left Arm] 98 Blood Pressure Source [Left Arm] Automatic Cuff Blood Pressure Position [Left Arm] Sitting 02 Sat by Pulse Oximetry 98 Oxygen Delivery Method Room Air Orders (Tests/Meds): ORDERS Category Date Time Status XR knee LT 3V Stat Exams 09/07/24 13:03 Ordered Radiology Data #1: Image(s): Knee Image Reviewed: Yes I reviewed the patient's radiology results and Yes I have reviewed radiologist's interpretation NDINGS: Bones/joints: Small suprapatellar joint effusion. No acute fracture or dislocation. Soft tissues: Normal. IMPRESSION: Small suprapatellar joint effusion.
[2024-09-07 14:28] VITALS: BP 124/85; PULSE 88; RESP 18; TEMP 36.6; O2SAT 98
== END 2024-09-07 14:31 | disposition home or self-care (01) ==
PROVIDERS: Emergency Provider Nurse Practitioner Family; PCP Family Medicine
DX: M25.562 Pain in left knee (principal); R26.89 Other abnormalities of gait and mobility; M25.462 Effusion, left knee
CPT/HCPCS: 73562; 99212; G0381